=== PATIENT | male | born 1950 | race Hispanic/Latino ===

== ENCOUNTER 2022-03-03 16:10 | Emergency (ER) | payer MEDICARE, OTHER ==
[~2022-03-03] VITALS: Ht 167.6 cm; Wt 66.2 kg
[2022-03-03] MEDS ORDERED: HYDROCODON-ACE1 EAC9 PO (19:09)
== END 2022-03-03 19:16 | disposition home or self-care (01) ==
LOC: ER 17:21
DX: S22.31XA Fracture of one rib, right side, initial encounter for closed fracture (principal); M25.511 Pain in right shoulder; W17.89XA Other fall from one level to another, initial encounter; Y92.89 Other specified places as the place of occurrence of the external cause; E11.9 Type 2 diabetes mellitus without complications; Z85.818 Personal history of malignant neoplasm of other sites of lip, oral cavity, and pharynx
CPT/HCPCS: 71101; 99283